=== PATIENT | female | born 1930 | race Caucasian/White ===

== ENCOUNTER 2018-09-05 09:00 | Inpatient (IN) | payer MEDICARE, OTHER ==
[~2018-09-05] VITALS: Ht 147.3 cm; Wt 66.2 kg
[~2018-09-05 09:00] MED LIST: ASPI-1169 PO; CLOP75TA15 PO; DYMISTA NS; EVOL140S SQ; LORA1TAB PO; MECL-102 PO; METO25TA3 PO; NITR1PAT67 TD; OLOP2.5D EACHEYE; ROSU20TA PO
--- NOTE | 2018-09-05 09:05 | NUR ---
AAOX3, BIB DAUGHTER FROM HOME C/O NAUSEA, VOMITING AND DIZZINESS THAT STARTED YESTERDAY, WORSE TODAY. RR IS EVEN AND UNLABORED. SKIN IS WARM AND DRY. ASSISTED HOSPITAL GOWN. PLACED ON THE MONITOR. DR SOTELO AT FOR EVAL.
[2018-09-05] MEDS ORDERED: ONDANSETRON HCL/PF 4 MG/2 ML VIAL ONE (09:11)
[2018-09-05 09:28] LABS: BASOPHILS % (AUTO) 0.4 % (0.0-2.0); EOSINOPHILS % (AUTO) 1.7 % (0.0-6.0); HEMATOCRIT 40 % (33-45); HEMOGLOBIN 13.1 g/dL (11.5-14.8); LYMPHOCYTES # (AUTO) 2.5 /CMM (0.8-4.8); LYMPHOCYTES % (AUTO) 34.2 % (20.0-44.0); MEAN CORPUSCULAR HGB CONC 33 g/dl (31.0-36.0); MEAN CORPUSCULAR VOLUME 87 fL (82-100); MONOCYTES # (AUTO) 0.5 /CMM (0.1-1.30); MONOCYTES % (AUTO) 7.2 % (2.0-12.0); NEUTROPHILS # (AUTO) 4.2 /CMM (1.8-8.9); NEUTROPHILS % (AUTO) 56.5 % (43.0-81.0); PLATELET COUNT (AUTO) 170 /CMM (150-450); RED BLOOD CELL COUNT(AUTO) 4.57 MIL/uL (4.0-5.2); WHITE BLOOD COUNT (AUTO) 7.3 K/uL (4.3-11.0)
[2018-09-05] MEDS ORDERED: ONDANSETRON HCL/PF - ER 4 MG/2 ML VIAL IV ONE (09:30)
[2018-09-05] MEDS ORDERED: IV NS 0.9% 500 ML BAG IV ONE (09:30)
[2018-09-05] MEDS ORDERED: LORAZEPAM INJ 2 MG/ML VIAL ONE (09:33)
[2018-09-05] MEDS ORDERED: diphenhydrAMINE HCL 50 MG/ML VIAL ONE (09:34)
[2018-09-05 09:39] LABS: CALCIUM, SERUM 8.8 mg/dL (8.5-10.1); CARBON DIOXIDE 32 mmol/L (21-32); CHLORIDE 99 mmol/L (98-107); CREATININE 0.9 mg/dL (0.6-1.3); GLUCOSE 105 mg/dL (74-106); POTASSIUM 3.9 mmol/L (3.5-5.1); SODIUM SERUM 134 mmol/L (136-145); UREA NITROGEN, BLOOD 9 mg/dL (7-18)
[2018-09-05 09:40] LABS: INR 0.95 (0.85-1.15)
[2018-09-05 09:43] LABS: ALANINE AMINOTRANSFERASE 11 U/L (12-78); ALBUMIN 3.6 g/dL (3.4-5.0); ALKALINE PHOSPHATASE 50 U/L (46-116); ASPARTATE AMINOTRANSFERASE 19 U/L (15-37); BILIRUBIN,DIRECT 0.2 mg/dL (0.0-0.2); BILIRUBIN,TOTAL 0.8 mg/dL (0.2-1.0); LIPASE 126 U/L (73-393); TOTAL PROTEIN, SERUM 7.2 g/dL (6.4-8.2)
[2018-09-05 09:51] LABS: TROPONIN I < 0.017 ng/mL (0.00-0.056)
[2018-09-05] MEDS ORDERED: diphenhydrAMINE HCL 50 MG/ML VIAL IV ONE (10:00)
[2018-09-05] MEDS ORDERED: LORAZEPAM INJ 2 MG/ML VIAL IV ONE (10:00)
--- NOTE | 2018-09-05 10:25 | NUR ---
ACCOUNTANT MACHINE PROCESSING AT BEDSIDE TO TAKE PATIENT FOR CT SCAN
--- NOTE | 2018-09-05 11:32 | NUR ---
panel call placed
--- NOTE | 2018-09-05 11:32 | NUR ---
CALLED NURSING CHINCHILLA FARMER AND REQUESTED A MED SURG BED FOR THIS PT.
[2018-09-05 12:29] LABS: APPEARANCE,URINE Clear (CLEAR); BILIRUBIN,URINE Negative (NEGATIVE); BLOOD, URINE Negative Ery/uL (NEGATIVE); COLOR,URINE Yellow (YELLOW); KETONES,URINE Negative (NEGATIVE); LEUKOCYTE ESTERASE ,URINE Negative (NEGATIVE); NITRITE, URINE Negative (NEGATIVE); PH,URINE 7.5 (5.0-8.0); PROTEIN,URINE Negative (NEGATIVE); UGLUCOSE Negative (NEGATIVE); UROBILINOGEN,URINE 0.2 EU/dL (0.2)
--- NOTE | 2018-09-05 14:09 | NUR ---
PATIENT WILL BE TRANSFERRED TO ROOM 111, REPORT GIVEN TO LEFTY
--- NOTE | 2018-09-05 14:15 | NUR ---
BACK SHOE WORKER OPENING ADMISSION NOTES RECEIVED PT FROM ER TO ROOM 111(2)BY CARLTON.ALERT/ORIENTED X4 WITH HEBRU SPEAKING PT.ON RA WITH O2 SATURATION 97%,TOLERATED WELL.ON TELE HR IS 60'S WITH SR.NO SOB AND ACUTE DISTRESS NOTED.IV LINE IS ON LEFT AC G20,SITE IS CLEAN,DRY AND INTACT.SKIN ASSESSMENT IS DONE,BRUISE IN RIGHT HAND NOTED AND 2+PITTING EDEMA NOTED ON B/L FEET.VITAL SIGNS CHECKED AND RECORDED.IV FLUIDS WITH 0.9% NS IS STARTED @75CC/HR.SAFETY IS MAINTAINED AT ALL TIME.BED IS IN LOW POSITION AND LOCKED.CALL LIGHT IS WITHIN REACH AND EXPLAINED HOW IT IS USING.ID BAND AND BE SIDE ALARM IS ON.WILL CONTINUOUSLY MONITOR THE PT CLOSELY.
[2018-09-05] MEDS ORDERED: HYDROCODONE/APAP 5/325MG 1 EACH TABLET PO PRN (15:00)
[2018-09-05] MEDS ORDERED: ACETAMINOPHEN 325 MG TABLET PO PRN (15:00)
[2018-09-05] MEDS ORDERED: Z GUARD REMEDY 2 OZ OINT TP PRN (15:00)
[2018-09-05] MEDS ORDERED: MAG HYDROX/AL HYDROX/SIMETH 30 ML UDC PO PRN (15:00)
[2018-09-05] MEDS ORDERED: ZOLPIDEM TARTRATE 5 MG TABLET PO PRN (15:00)
[2018-09-05] MEDS ORDERED: ONDANSETRON HCL/PF 4 MG/2 ML VIAL IVP PRN (15:00)
[2018-09-05] MEDS ORDERED: MAGNESIUM HYDROXIDE 30 ML UDC PO PRN (15:00)
[2018-09-05] MEDS ORDERED: ENALAPRILAT DIHYD. (2.5MG/ML) 1.25 MG/ML VIAL IV PRN (15:30)
[2018-09-05] MEDS ORDERED: hydrALAZINE HCL 25 MG TABLET PO PRN (15:30)
[2018-09-05 16:00] VITALS: BP_SYST 153; BP_DIAS 50; BP_DIAS 53
[2018-09-05] MEDS: IV NS 0.9% 1,000 ML IV PRN (16:34)
[2018-09-05] MEDS ORDERED: Medication Not On Formulary EA (Rosuvastatin Calcium (Crestor) 40 MG) PO SCH (18:00)
--- NOTE | 2018-09-05 19:25 | NUR ---
CATERING AND EVENTS MANAGER CLOSING NOTES PT IS ON BED.NO SOB AND ACUTE DISTRESS NOTED.ENDORSED TO LIBRARY CUSTOMER SERVICE CLERK RN FOR CONTINUITY OF CARE.
[2018-09-05 20:00] VITALS: BP 153/52
[2018-09-05] MEDS ORDERED: ALPRAZOLAM 0.25 MG TABLET PO PRN (20:00)
[2018-09-05] MEDS ORDERED: ENOXAPARIN SODIUM 30 MG/0.3 ML DISP.SYRIN SQ SCH (21:00)
[2018-09-05] MEDS: MECLIZINE HCL 25 MG TABLET PO SCH (21:02)
[2018-09-05] MEDS ORDERED: LORAZEPAM 1 MG TABLET PO SCH (22:00)
[2018-09-06] VITALS: BP 144/63
--- NOTE | 2018-09-06 03:07 | NUR ---
RN NOTES GAVE PATIENT AND REPORT TO PURA CRESPO
--- NOTE | 2018-09-06 03:10 | NUR ---
QUICK SKETCH ARTIST NOTES Report received from ZAK Siegel. Patient sleeping in bed, appears comfortable. Breathing even and unlabored. Not in any distress. Sinus emile 58 on nurse monitoring. Peripheral IV on LAC g#20 infusing at 75mL/hr. Call vega within reach. Bed in low, locked position. Will continue to monitor accordingly
[2018-09-06 04:00] VITALS: BP 140/65
[2018-09-06] MEDS: MECLIZINE HCL 25 MG TABLET PO SCH ×2 (05:04→12:10)
[2018-09-06 05:09] VITALS: BP 140/65
--- NOTE | 2018-09-06 06:20 | NUR ---
GANG MINER CLOSING NOTES Patient sleeping in bed, remains stable. Breathing even and unlabored. Not in any distress. No complaints of pain and discomfort as of this time. Peripheral IV infusing at 75mL/hr. Call vega within reach. Bed in low, locked position. Will endorse QUIQUE to oncoming RN
[2018-09-06 06:40] LABS: BASOPHILS % (AUTO) 0.4 % (0.0-2.0); EOSINOPHILS % (AUTO) 2.4 % (0.0-6.0); HEMATOCRIT 38 % (33-45); HEMOGLOBIN 12.6 g/dL (11.5-14.8); LYMPHOCYTES # (AUTO) 1.5 /CMM (0.8-4.8); LYMPHOCYTES % (AUTO) 22.4 % (20.0-44.0); MEAN CORPUSCULAR HGB CONC 33 g/dl (31.0-36.0); MEAN CORPUSCULAR VOLUME 89 fL (82-100); MONOCYTES # (AUTO) 0.5 /CMM (0.1-1.30); MONOCYTES % (AUTO) 7.9 % (2.0-12.0); NEUTROPHILS # (AUTO) 4.5 /CMM (1.8-8.9); NEUTROPHILS % (AUTO) 66.9 % (43.0-81.0); PLATELET COUNT (AUTO) 134 /CMM (150-450); RED BLOOD CELL COUNT(AUTO) 4.22 MIL/uL (4.0-5.2); WHITE BLOOD COUNT (AUTO) 6.7 K/uL (4.3-11.0)
[2018-09-06 06:59] LABS: CARBON DIOXIDE 28 mmol/L (21-32); CHLORIDE 102 mmol/L (98-107); CREATININE 0.9 mg/dL (0.6-1.3); GLUCOSE 84 mg/dL (74-106); MAGNESIUM 1.9 mg/dL (1.8-2.4); PHOSPHORUS 3.8 mg/dL (2.5-4.9); POTASSIUM 4.1 mmol/L (3.5-5.1); SODIUM SERUM 136 mmol/L (136-145); UREA NITROGEN, BLOOD 12 mg/dL (7-18)
--- NOTE | 2018-09-06 07:25 | NUR ---
AUTOMATIC MACHINES SUPERVISOR OPENING NOTES RECEIVED PT ON BED.ALERT/ORIENTED X3-4.ON RA WITH NORMAL O2 SATURATION.NO SOB AND ACUTE DISTRESS NOTED.IV LINE IS ON LEFT AC G20,SITE IS CLEAN,DRY AND INTACT.SAFETY IS MAINTAINED AT ALL TIMES.BED IS IN LOW POSITION AND LOCKED.CALL LIGHT IS WITHIN REACH.WILL CONTINUE TO MONITOR THE PT CLOSELY.
[2018-09-06 08:00] VITALS: BP 147/50
[2018-09-06] MEDS ORDERED: CLOPIDOGREL BISULFATE 75 MG TABLET PO SCH (09:00)
[2018-09-06] MEDS ORDERED: ASPIRIN 81 MG TAB.CHEW PO SCH (09:00)
[2018-09-06] MEDS ORDERED: METOPROLOL SUCCINATE 25 MG TAB.SR.24H PO SCH (09:00)
[2018-09-06] MEDS ORDERED: OLOPATADINE HCL 0.1% OPHTH BOTTLE EACHEYE SCH (09:30)
[2018-09-06 12:00] VITALS: BP 115/42
[2018-09-06] MEDS: IV NS 0.9% 1,000 ML IV PRN (12:53)
[2018-09-06] MEDS ORDERED: MECL-102 PO (13:53)
--- NOTE | 2018-09-06 14:00 | NUR ---
TISSUE SPECIALIST NOTES DR.SAM SHORT ORDERED TO D/C PT IF IT IS CLEARED BY NEUROLOGIST AND UMBRELLA FINISHER.
--- NOTE | 2018-09-06 14:05 | NUR ---
HOSPICE CLINICAL SUPERVISOR NOTES TROPONIN LEVEL RESULT RECEIVED.REVIEWED WITH AMI PATTERSON TO D/C THE PT AFTER SEE BY PT.
--- NOTE | 2018-09-06 14:35 | NUR ---
YARD LABORER NOTES PT HAS DONE.ACCORDING TO PT,PATIENT DONE WELL AND SHE AMBULATED 300 FEET WITH FFW.SHE FEELS DIZZY BUT STILL SHE TOLERATED WELL AND PT CAN D/C HOME .
--- NOTE | 2018-09-06 15:00 | NUR ---
NYLON MACHINE OPERATOR NOTES FAMILY MADE AWARE ABOUT THE D/C PLANNING AND THEY SAID WILL COME SOON TO [employer]UMINUM BOATS ASSEMBLER THE PT TO HOME.WAITING FOR THEM TO [employer]UM[employer] ASSEMBLER.
[2018-09-06 16:00] VITALS: BP 147/59
--- NOTE | 2018-09-06 16:40 | NUR ---
TEACHER NOTES PT IS READY FOR DISCHARGE.ALL THE DISCHARGE INSTRUCTIONS AND MEDICINES ARE EXPLAINED TO THE PT AND FAMILY.THEY VERBALIZED THAT THEY UNDERSTOOD.SKIN ASSESSMENT DONE,NOTHING NOTED UPON ADMISSION.VITAL SIGNS CHECKED AND IT IS STABLE.I ASSISTED PT TO THE [employer] WHEEL CHAIR WITH THE FAMILY.THE DAUGHTER MS.HAYA OLSEN TAKING CARE THE PT.PT TOLERATED WELL.NO COMPLICATIONS NOTED. Addendum: 09/06/18 at 1659 by BRYNN YOUNG RN PERIPHERAL IV LINE ON LEFT AC HAS REMOVED.ID BAND TAKE OFF.
[2018-09-06] MEDS ORDERED: ATORVASTATIN 40 MG TABLET PO SCH (22:00)
== END 2018-09-06 16:42 | disposition home or self-care (01) | DRG 149 ==
LOC: ER 09:02 → MEDSG1 13:00 → TELE1 15:21
PROVIDERS: ADMIT Internal Medicine; ATTEND Internal Medicine
DX: H81.399 Other peripheral vertigo, unspecified ear (principal); I10 Essential (primary) hypertension; E86.0 Dehydration; E78.5 Hyperlipidemia, unspecified; I25.10 Atherosclerotic heart disease of native coronary artery without angina pectoris; K21.9 Gastro-esophageal reflux disease without esophagitis; Z95.5 Presence of coronary angioplasty implant and graft; Z88.0 Allergy status to penicillin; Z88.2 Allergy status to sulfonamides; I35.0 Nonrheumatic aortic (valve) stenosis; I34.0 Nonrheumatic mitral (valve) insufficiency; I70.90 Unspecified atherosclerosis
CPT/HCPCS: 36415; 70450-TC; 80048-TC; 80076-TC; 81000-TC; 83605-TC; 83690-TC; 83735-TC; 84100-TC; 84484-TC; 85025-TC; 85730-TC; 87081-TC; A4606; G0378; J1200; J1650; J2060; J2405; J3490; J7030; J7040; J8597; Z7610